=== PATIENT | male | born 1950 | race Two or more races ===

== ENCOUNTER 2019-04-16 07:36 | Outpatient (CLI) | payer OTHER | END 2019-04-16 15:00 | disposition home or self-care (01) | LOC: LAB 07:36 | DX: E11.65 Type 2 diabetes mellitus with hyperglycemia (principal) ==

== ENCOUNTER 2021-11-01 08:46 | Outpatient (CLI) | payer OTHER | END 2021-11-01 09:00 | disposition home or self-care (01) | LOC: NUCLEAR 08:46 | PROVIDERS: ATTEND Internal Medicine Cardiovascular Disease | DX: I34.0 Nonrheumatic mitral (valve) insufficiency (principal) ==